=== PATIENT | female | born 1990 | race Caucasian/White ===

== ENCOUNTER 2016-06-21 17:35 | Emergency (ER) | payer OTHER ==
[~2016-06-21] VITALS: Ht 167.6 cm; Wt 71.7 kg
[2016-06-21] MEDS ORDERED: ADDE30CA PO (17:44)
[2016-06-21] MEDS ORDERED: NAPR220C PO (17:44)
[2016-06-21] MEDS ORDERED: IRRIGATION OPHTH SOLN (EYE WASH) 120ML OD ONE (18:15)
[2016-06-21] MEDS ORDERED: FLUORESCEIN OPHTH 1 MG STRIP OD ONE (18:45)
[2016-06-21 19:16] VITALS: BP 139/77
== END 2016-06-21 19:17 | disposition home or self-care (01) ==
LOC: M ED 18:32
DX: Z77.098 Contact with and (suspected) exposure to other hazardous, chiefly nonmedicinal, chemicals (principal); F90.9 Attention-deficit hyperactivity disorder, unspecified type